=== PATIENT | male | born 1985 | race Caucasian/White ===

== ENCOUNTER 2022-03-25 15:33 | Emergency (ER) | payer BC ==
[~2022-03-25] VITALS: Ht 190.5 cm; Wt 99.3 kg
[2022-03-25] MEDS ORDERED: ANALPRAM HC 2.530 GM RECTAL (19:38)
== END 2022-03-25 20:14 | disposition home or self-care (01) ==
LOC: ER 15:33
DX: K64.9 Unspecified hemorrhoids (principal); R06.02 Shortness of breath; R50.9 Fever, unspecified; Z20.822 Contact with and (suspected) exposure to COVID-19